=== PATIENT | female | born 1990 | race Caucasian/White ===

== ENCOUNTER → 2019-05-20 | Outpatient (REF) | payer OTHER | LOC: M LAB REF 16:29 | PROVIDERS: ATTEND Obstetrics & Gynecology | DX: Z34.83 Encounter for supervision of other normal pregnancy, third trimester (principal); Z3A.00 Weeks of gestation of pregnancy not specified ==

== ENCOUNTER 2019-06-02 12:19 | Inpatient (IN) | payer OTHER ==
[2019-06-02] VITALS (12 sets, daily range): BP systolic 94–132; BP diastolic 51–86
[~2019-06-02] VITALS: Ht 157.5 cm; Wt 62.6 kg
[2019-06-02] MEDS ORDERED: PRENTAB9 PO (12:54)
[2019-06-02] MEDS ORDERED: LACTATED RINGER'S 1000 ML IV STA (13:14)
[2019-06-02] MEDS ORDERED: LR 1,000 ML IV SCH (13:14)
[2019-06-02 14:04] LABS: HEMATOCRIT 35.5 % (36.0-47.0); MEAN CORPUSCULAR HEMOGLOBIN 31.9 pg (27.0-33.0); MEAN CORPUSCULAR HGB CONC 33.8 g/dl (32.0-36.5); MEAN CORPUSCULAR VOLUME 94.4 fl (80.0-96.0); PLATELET COUNT, AUTOMATED 155 10^3/uL (150-450); RED BLOOD COUNT 3.76 10^6/uL (4.00-5.40)
[2019-06-02] MEDS ORDERED: OXYTOCIN 30 UNITS IN 0.9% NaCl 500ML IV BAG (J2590) As Ordered ONE (14:31)
[2019-06-02] MEDS ORDERED: OXYTOCIN DRIP 30 UNITS in IV 1 EA IV SCH ×2 (14:45→19:08)
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
[2019-06-02 19:12] LABS: CORD GAS ABE V -3.3; CORD GAS HCO3 V 19.7 MEQ/L; CORD GAS O2 SAT V 88.5 %; CORD GAS PH V 7.435 UNITS; CORD GAS PO2 V 43.1 mmHg; CORD GAS SBC V 21.5 MEQ/L; CORD GAS TCO2 V 20.6 MEQ/L
[2019-06-02 19:14] LABS: CORD GAS HCO3 A 22.9 MEQ/L; CORD GAS O2 SAT A 56.4 %; CORD GAS PCO2 A 43.9 mmHg; CORD GAS PH A 7.335 UNITS; CORD GAS PO2 A 22.7 mmHg; CORD GAS TCO2 A 24.2 MEQ/L
[2019-06-02] MEDS ORDERED: DOCUSATE SODIUM 100 MG CAP PO PRN (19:15)
[2019-06-02] MEDS ORDERED: DIBUCAINE 1% OINTMENT 30GM TOP PRN (19:15)
[2019-06-02] MEDS ORDERED: METHYLERGONOVINE MALEATE 0.2 MG TAB PO PRN (19:15)
[2019-06-02] MEDS ORDERED: ACETAMINOPHEN TAB 650MG DOSE (2X325MG) PO PRN (19:15)
[2019-06-02] MEDS ORDERED: RHOGAM 300 MCG (1500 IU) INJ (J2790) IM SCH (19:15)
[2019-06-02] MEDS ORDERED: ANUSOL HC CREAM 30GM TOP PRN (19:15)
[2019-06-02] MEDS ORDERED: IBUPROFEN 600 MG TAB PO PRN (19:15)
[2019-06-02] MEDS ORDERED: IBUPROFEN 800 MG TAB PO PRN (19:15)
[2019-06-02] MEDS ORDERED: ACETAMINOPHEN 500 MG TAB PO PRN (19:15)
[2019-06-02] MEDS ORDERED: MEASLES,MUMPS,RUBELLA VACCINE INJ (MMR-II) (90707) SC SCH (19:15)
--- NOTE | 2019-06-02 20:20 | DN ---
DATE: 06/02/2019 Liliana is a 28-year-old female 4, para 3-0-0-3, who was admitted at 40 weeks for an induction. She underwent artificial rupture of membrane, Pitocin augmentation. She then progressed to fully dilated, delivered a live male in right occiput anterior position over an intact perineum. scores 9 and 9, weight 7 pounds 6 ounces. Placenta delivered spontaneously intact. Three-vessel cord. Perineum, vagina and cervix inspected. No laceration noted. Estimated blood loss 250 mL. Both mother and baby in stable condition.
[2019-06-03 05:43] VITALS: BP 101/58
[2019-06-03] MEDS: PRENATAL VITAMINS CHEWABLE TABLET PO SCH (08:53)
[2019-06-03 18:00] VITALS: BP 111/62
[2019-06-04 05:21] VITALS: BP 120/80
[2019-06-04] MEDS: PRENATAL VITAMINS CHEWABLE TABLET PO SCH (07:44)
== END 2019-06-04 13:45 | disposition home or self-care (01) | DRG 807 ==
LOC: M LDI 12:19 → M OBS 20:44
PROVIDERS: ADMIT Obstetrics & Gynecology; ATTEND Obstetrics & Gynecology
PROC: 10E0XZZ Delivery of Products of Conception, External Approach (ICD-10-PCS; principal; 2019-06-02)
PROC: 3E033VJ Introduction of Other Hormone into Peripheral Vein, Percutaneous Approach (ICD-10-PCS; 2019-06-02)
PROC: 10907ZC Drainage of Amniotic Fluid, Therapeutic from Products of Conception, Via Natural or Artificial Opening (ICD-10-PCS; 2019-06-02)
DX: O80 Encounter for full-term uncomplicated delivery (principal); Z37.0 Single live birth; Z3A.40 40 weeks gestation of pregnancy

== ENCOUNTER → 2024-04-01 | Outpatient (REF) | payer OTHER ==
[~2024-04-01] MED LIST: PRENTAB9 PO
== END ==
LOC: M PLALAB 15:48
PROVIDERS: ATTEND Advanced Practice Midwife
DX: Z34.81 Encounter for supervision of other normal pregnancy, first trimester (principal)

== ENCOUNTER → 2024-04-01 | Outpatient (CLI) | payer OTHER ==
[2024-04-01 17:01] LABS: HEMATOCRIT 40.5 % (36.0-47.0); HEMOGLOBIN 13.6 g/dl (12.0-15.5); MEAN CORPUSCULAR HEMOGLOBIN 30.5 pg (27.0-33.0); MEAN CORPUSCULAR HGB CONC 33.6 g/dl (32.0-36.5); MEAN CORPUSCULAR VOLUME 90.8 fl (80.0-96.0); PLATELET COUNT, AUTOMATED 194 10^3/uL (150-450); RED BLOOD COUNT 4.46 10^6/uL (4.00-5.40); WHITE BLOOD COUNT 9.2 10^3/uL (4.0-10.0)
[2024-04-01 17:56] LABS: HIV 1&2 SCREEN NEGATIVE (NEGATIVE)
[2024-04-01 18:05] LABS: HEPATITIS C VIRUS ABY INDEX < 0.02 INDEX (<0.8)
[2024-04-01 18:50] LABS: GC DNA AMPLIFICATION NEGATIVE (NEGATIVE)
== END ==
LOC: M PLALAB 16:01
PROVIDERS: ATTEND Advanced Practice Midwife
DX: O09.529 Supervision of elderly multigravida, unspecified trimester (principal); Z3A.00 Weeks of gestation of pregnancy not specified

== ENCOUNTER → 2025-03-29 | Outpatient (CLI) | payer OTHER | LOC: M RAD 15:44 | DX: M79.89 Other specified soft tissue disorders (principal) ==

== ENCOUNTER → 2025-06-22 | Outpatient (CLI) | payer OTHER | LOC: M RAD 07:12 | PROVIDERS: ATTEND Physician Assistant | DX: R10.11 Right upper quadrant pain (principal); R19.7 Diarrhea, unspecified | CPT/HCPCS: 78227; A9537 ==